=== PATIENT | female | born 1930 | race Hispanic/Latino ===

== ENCOUNTER 2017-08-06 16:15 | Emergency (ER) | payer OTHER, MEDICARE ==
[2017-08-06] MEDS ORDERED: LIDOCAINE HCL 1% 20 ML VIAL ONE (16:59)
== END 2017-08-06 17:54 | disposition home or self-care (01) ==
LOC: EDH 16:15
DX: S61.216A Laceration without foreign body of right little finger without damage to nail, initial encounter (principal); W54.0XXA Bitten by dog, initial encounter; Y93.89 Activity, other specified; Y92.89 Other specified places as the place of occurrence of the external cause; Y99.8 Other external cause status
CPT/HCPCS: 12041; 73130

== ENCOUNTER → 2018-03-10 | Outpatient (CLI) | payer OTHER, MEDICARE | END | disposition home or self-care (01) | LOC: OIH 07:39 | PROVIDERS: ATTEND Internal Medicine Cardiovascular Disease | DX: M41.86 Other forms of scoliosis, lumbar region (principal); N28.1 Cyst of kidney, acquired; J98.6 Disorders of diaphragm | CPT/HCPCS: 74150 ==